=== PATIENT | female | born 1985 | race Caucasian/White ===

== ENCOUNTER 2019-03-05 19:36 | Emergency (ER) | payer MEDICAID ==
[~2019-03-05] VITALS: Ht 170.2 cm; Wt 97.5 kg
[2019-03-05 19:40] VITALS: BP_SYST 124
--- NOTE | 2019-03-05 19:54 | NUR ---
Patient to ER bed 5 to gown for evaluation. Side rails up. Report given to CAROLYNN JAQUEZ.
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
--- NOTE | 2019-03-05 20:00 | NUR ---
ER Dr. Cooney at bedside examining patient.
[2019-03-05] MEDS ORDERED: IBUPROFEN 800 MG TABLET PO ONE (20:15)
--- NOTE | 2019-03-05 20:45 | NUR ---
No adverse reactions noted after medication administration. Will continue to monitor.
[2019-03-05] MEDS ORDERED: NACL 0.9% 1,000 ML IV ONE (21:42)
--- NOTE | 2019-03-05 22:09 | NUR ---
# 18 gauge angiocath placed to LAC. Use of asceptic technique. Opsite placed over site. Blood return noted. Blood for lab drawn from site. Flushed with 10 cc of normal saline. No evidence of infiltration noted. Patient tolerated well.
[2019-03-05 22:14] LABS: BASOPHILS # (AUTO) 0.1 K/uL (0.0-0.2); BASOPHILS % (AUTO) 0.9 % (0.0-2.0); EOSINOPHILS # (AUTO) 0.1 K/uL (0.0-0.4); EOSINOPHILS % (AUTO) 0.8 % (0.0-4.0); HEMATOCRIT 37.3 % (36-48); HEMOGLOBIN 12.7 g/dL (12.0-16.0); LYMPHOCYTES # (AUTO) 2.2 K/uL (1.0-5.5); LYMPHOCYTES % (AUTO) 19.8 % (20.5-51.5); MEAN CORPUSCULAR HEMOGLOBIN 31 pg (27-31); MEAN CORPUSCULAR HGB CONC 34 % (32-36); MEAN CORPUSCULAR VOLUME 90 fL (79.0-98.0); MONOCYTES % (AUTO) 8.8 % (1.7-9.3); NEUTROPHILS # (AUTO) 7.6 K/uL (1.8-7.7); NEUTROPHILS % (AUTO) 69.7 % (40.0-70.0); PLATELET COUNT (AUTO) 203 K/uL (130-430); RED BLOOD CELL COUNT(AUTO) 4.15 MIL/uL (4.2-6.2); RED CELL DISTRIBUTION WIDTH 13.2 % (9.0-15.0); WHITE BLOOD COUNT (AUTO) 10.9 K/uL (4.8-10.8)
[2019-03-05 22:15] LABS: BILIRUBIN,URINE 2+ (NEGATIVE); BLOOD, URINE 3+ (NEGATIVE); CLARITY/URINE CLOUDY (CLEAR); COLOR,URINE AMBER (YELLOW); GLUCOSE,URINE NEGATIVE (NEGATIVE); KETONES,URINE 2+ (NEGATIVE); LEUKOCYTE ESTERASE ,URINE NEGATIVE (NEGATIVE); NITRITE, URINE NEGATIVE (NEGATIVE); PH,URINE 5.5 (5.0-8.0); PROTEIN URINE 2+ (NEGATIVE)
[2019-03-05 22:29] LABS: ANION GAP 5 (5-15); CALCIUM 8.7 mg/dL (8.4-11.0); CHLORIDE 110 mmol/L (98-107); CREATININE 0.81 mg/dL (0.55-1.30); GLUCOSE 85 mg/dL (70-99); POTASSIUM 3.5 mmol/L (3.5-5.1); SODIUM SERUM 141 mmol/L (136-145); UREA NITROGEN, BLOOD 18 mg/dL (8-21)
--- NOTE | 2019-03-05 22:30 | NUR ---
IVF infusing with no s/s of infiltration at this time. Will cont to monitor.
[2019-03-05 22:33] LABS: GFR AFRICAN AMERICAN 103 mL/min (>90)
[2019-03-05 22:34] LABS: ALANINE AMINOTRANSFERASE 29 U/L (12-78); ALBUMIN 3.6 g/dL (3.4-4.8); ASPARTATE AMINOTRANSFERASE 21 U/L (10-37); TOTAL BILIRUBIN 0.7 mg/dL (0.0-1.0)
[2019-03-05 22:40] LABS: ALCOHOL, BLOOD < 3 mg/dL (<10)
[2019-03-05 22:52] LABS: ACETAMINOPHEN < 1 ug/mL (1-30)
[2019-03-05 23:27] LABS: BACTERIA,URINE FEW /HPF (None Seen); RBC,URINE >100 /HPF (0-3)
[2019-03-05 23:28] LABS: MUCUS,URINE 2+ /LPF (None Seen)
[2019-03-05 23:37] LABS: BARBITURATE, URINE NEGATIVE (NEG <=200); BENZODIAZEPINE, URINE NEGATIVE (NEG <=150); CANNABINOID, URINE NEGATIVE (NEG <=50); COCAINE, URINE NEGATIVE (NEG <=150); METHAMPHETAMINES SCREEN,URINE POSITIVE (NEG <=500); OPIATE, URINE NEGATIVE (NEG <=100); PHENCYCLIDINE SCREEN,URINE NEGATIVE (NEG <=25); UR TRICYCLIC ANTIDEPRESSANTS NEGATIVE (NEG <=300); URINE AMPHETAMINE POSITIVE (NEG <=500); URINE METHADONE NEGATIVE (NEG <=200); URINE OXYCODONE SCREEN NEGATIVE (NEG <=100); URINE PROPOXYPHENE SCREEN NEGATIVE (NEG <=300)
[2019-03-06 00:28] VITALS: BP_SYST 126
--- NOTE | 2019-03-06 00:28 | NUR ---
Patient given written and verbal discharge instructions and verbalizes understanding. ER MD discussed with patient the results and treatment provided. Patient in stable condition. ID arm band removed. IV catheter removed intact and dressing applied, no active bleeding. Rx of Ibuprofen given. Patient educated on pain management and to follow up with PMD. Pain Scale 2/10 tolerable to patient. Opportunity for questions provided and answered. Medication side effect fact sheet provided.
--- NOTE | 2019-03-06 10:38 | NUR ---
[employer]ultural [employer] Test Engineer Note Patient requested to speak with a child protective services social worker and was waiting in the ED waiting room. PROBATE JUDGE spoke with patient. Patient stated she has a mental health diagnosis, bipolar, and was feeling very anxious about being newly homeless, but no suicidal ideation. She wanted to go to inpatient psych and had [facility]. [facility]. They don't take [facility]. They recommended [facility]. Phoned. They recommended outpatient. PROBATE JUDGE provided patient with homeless resources packet. Recommended patient go to [facility] who also have homeless outreach. Recommended the homeless half-way in [place]. Provided two bus passes with directions to [place]. Provided a meal, clothing, and a bag to carry items.
== END 2019-03-06 00:28 | disposition home or self-care (01) ==
LOC: SED 19:36
DX: S16.1XXA Strain of muscle, fascia and tendon at neck level, initial encounter (principal); F32.9 Major depressive disorder, single episode, unspecified; X58.XXXA Exposure to other specified factors, initial encounter; Y93.89 Activity, other specified; Y92.89 Other specified places as the place of occurrence of the external cause; Y99.8 Other external cause status
CPT/HCPCS: 36415; 80053; 80307; 81000; 85025; 96360; 99283; G0480; G0481; G0482; J7030

== ENCOUNTER 2021-07-20 23:57 | Emergency (ER) | payer MEDICAID ==
[~2021-07-20] VITALS: Ht 170.2 cm; Wt 104.3 kg
[2021-07-21 00:10] VITALS: BP_SYST 135
--- NOTE | 2021-07-21 00:21 | NUR ---
PT COMING IN THIS EVENING FOR LEFT EARACHE WHICH STATRTED EARLY TONIGHT. DENIES ANY DISCHARGE OR DRAINAGE TO EAR, HAS SOME DIMINISHED HEARING ONE EARACHE STARTED NO FEVER, N/V/D. STATES PAIN IS CONSTANT. TOOK TYLENOL AT HOME WITH NO RELIEF. PT PLACED ON GURNEY, BED IN LOWEST POSITION, LOCKED, AND SIDERAIL UP X 1. NKA NO MED HX
--- NOTE | 2021-07-21 01:05 | NUR ---
AT BEDSIDE WITH PT
[2021-07-21] MEDS ORDERED: NAPR-686 PO (01:29)
[2021-07-21] MEDS ORDERED: NEOM10SO7 RIGHT EAR (01:29)
[2021-07-21] MEDS ORDERED: OXYM15MI9 NS (01:29)
[2021-07-21] MEDS ORDERED: IBUPROFEN 800 MG TABLET PO ONE (01:30)
[2021-07-21 01:45] VITALS: BP_SYST 135
--- NOTE | 2021-07-21 01:45 | NUR ---
Patient given written and verbal discharge instructions and verbalizes understanding. ER MD discussed with patient the results and treatment provided. Patient in stable condition. ID arm band removed. Rx AFRIN, NAPROXEN, AND CORTISPORIN OTIC DROPS given. Patient educated on pain management and to follow up with PMD. Pain Scale 8. Opportunity for questions provided and answered. Medication side effect fact sheet provided.
== END 2021-07-21 01:45 | disposition home or self-care (01) ==
LOC: SED 23:57
DX: H60.501 Unspecified acute noninfective otitis externa, right ear (principal); Z79.899 Other long term (current) drug therapy
CPT/HCPCS: 99283